=== PATIENT | female | born 1935 | race African-American/Black ===

== ENCOUNTER 2017-08-02 10:31 | Outpatient (CLI) | payer MEDICARE, MEDICAID ==
--- NOTE | 2017-08-02 12:43 | RAD ---
FOUR VIEWS OF THE RIGHT KNEE: INDICATION: Right knee pain. COMPARISON: None. FINDINGS: There is moderate osteoarthrosis of the right knee. There is mild joint capsular distention. No acu te fracture or subluxation is evident. IMPRESSION: No acute fracture or subluxation. Mild osteoarthrosis of the right knee. POS: [facility]
== END 2017-08-02 10:32 | disposition home or self-care (01) ==
LOC: RAD-FRANK 10:31
PROVIDERS: ATTEND Internal Medicine
DX: M25.561 Pain in right knee (principal); M17.11 Unilateral primary osteoarthritis, right knee

== ENCOUNTER 2017-08-31 14:13 | Emergency (ER) | payer MEDICARE, MEDICAID ==
--- NOTE | 2017-08-31 15:36 | RAD ---
RIGHT KNEE FOUR VIEW 08/31/17 HISTORY: Knee pain. COMPARISON: Radiograph 08/02/17. FINDINGS: there is narrowing of all three compartments. Moderate sized joint effusion. Moderate sized tricompartment osteophytes are present. Subchondral cyst formation is present of the l ateral tibial plateau. No displaced fracture is appreciated. IMPRESSION: Mild to moderate osteoarthritic disease with moderate sized joint effusion. May be sequela of underly ing degenerative changes. MRI may be helpful. POS: [facility]
--- NOTE | 2017-08-31 16:24 | ULT ---
VENOUS DOPPLER ULTRASOUND OF THE RIGHT LOWER EXTREMITY 08/31/17 HISTORY: Right lower extremity pain, right knee pain. TECHNIQUE: Chappell scale ultrasound with color flow and spectral doppler imaging of the deep venous system of the r ight lower extremity is performed. There is good flow, compression, and augmentation noted in the deep veins of the right lower extremit y including the common femoral, femoral, deep femoral, popliteal, posterior tibial and greater saphen ous veins. A small hypoechoic area/fluid collection is seen in the popliteal fossa likely a Yusuf's c yst. IMPRESSION: No evidence of DVT in the right lower extremity. POS: [facility]
== END 2017-08-31 16:45 | disposition home or self-care (01) ==
LOC: ERS 14:13
DX: M71.21 Synovial cyst of popliteal space [Baker], right knee (principal); M17.11 Unilateral primary osteoarthritis, right knee; E11.9 Type 2 diabetes mellitus without complications; I10 Essential (primary) hypertension

== ENCOUNTER 2017-09-20 08:14 | Outpatient (CLI) | payer MEDICARE, MEDICAID | END 2017-09-20 08:15 | disposition home or self-care (01) | LOC: BICMRI 08:14 | PROVIDERS: ATTEND Internal Medicine | DX: M71.21 Synovial cyst of popliteal space [Baker], right knee (principal); M17.11 Unilateral primary osteoarthritis, right knee; S83.281A Other tear of lateral meniscus, current injury, right knee, initial encounter ==

== ENCOUNTER 2017-10-22 08:16 | Emergency (ER) | payer MEDICARE, MEDICAID ==
--- NOTE | 2017-10-22 08:47 | RAD ---
PORTABLE CHEST 1 VIEW: DATE: 10/22/17. TIME: 8:45 a.m. HISTORY: Cough. FINDINGS: Comparison is made with the exam of 10/25/09. The heart size is normal. The aorta is tortuous. The lungs are expanded without lobar consolidation , pneumothoraces, or pleural effusions. IMPRESSION: No acute process. POS: [facility]
[2017-10-22 08:54] LABS: #Basophils 0.1 thou/uL (0.0-0.2); #Lymphocytes 1.3 thou/uL (1.20-3.40); #Monocytes 0.9 thou/uL (0.11-0.59); #Neutrophils 7.6 thou/uL (1.40-6.50); %Basophils 0.5 % (0.0-1.0); %Eosinophils 0.2 % (0.0-10.0); %Lymphocytes 12.7 % (21.0-51.0); %Monocytes 9.2 % (0.0-10.0); %Neutrophils 77.4 % (42.0-75.0); Hemoglobin 13.8 g/dL (12.0-16.0); Mean Corpuscular HGB CONC 31.4 g/dL (32.0-36.0); Mean Corpuscular Hemoglobin 27.4 pg (27.0-31.0); Mean Corpuscular Volume 87.1 fl (81.0-99.0); RBC Distribution Width 13.5 % (11.5-14.5); Red Blood Cell (RBC) Count 5.05 mill/uL (4.20-5.40); White Blood Cell (WBC) Count 9.8 thou/uL (4.8-10.8)
[2017-10-22] MEDS ORDERED: Acetaminophen 500 MG TAB ONE (08:55)
[2017-10-22 09:03] LABS: Bilirubin Negative (Negative); Blood, Urine Trace (Negative); Clarity CLEAR (Clear); Glucose, Urine (Dipstick) Negative (Negative); Leukocyte Negative (Negative); Nitrite Negative (Negative); Protein, Urine (Dipstick) 30 mg/dL (Neg-Trace); Specific Gravity, Urine 1.021 (1.002-1.036)
[2017-10-22 09:05] LABS: Bacteria/HPF None Seen HPF (None Seen); Hyaline Casts/LPF 0-3 HYALINE CAST LPF (0-3 Hyaline); Pathc Cast-AUWi Flag 0.13 (0-2.49); Squamous Epithelial 0-3 HPF (0-3); WBC/HPF 0-3 HPF (0-3)
[2017-10-22 09:13] LABS: ALT (SGPT) 7 U/L (8-55); AST (SGOT) 13 U/L (5-34); Albumin 4.1 g/dL (3.4-4.8); Alkaline Phosphatase 91 U/L (40-150); Anion Gap 14 mmol/L (10-20); BUN (Urea Nitrogen) 6 mg/dL (9.8-20.1); Calc. Creatinine Clearance 0 mL/min (70-130); Calcium 10.5 mg/dL (7.8-10.44); Carbon Dioxide 23 mmol/L (23-31); Chloride 103 mmol/L (98-107); Estimated GFR-MDRD Greater than 90; Globulin 3.8 g/dL (2.4-3.5); Glucose 144 mg/dL (83-110); Mean Platelet Volume 8.9 fL (7.4-10.4); Platelet Count 90 thou/uL (130-400); Protein, Total 7.9 g/dL (6.0-8.3); Sodium 136 mmol/L (136-145)
[2017-10-22] MEDS ORDERED: Ibuprofen 800 MG TAB ONE (10:00)
== END 2017-10-22 13:10 | disposition home or self-care (01) ==
LOC: ERS 08:16
DX: R50.9 Fever, unspecified (principal); E78.5 Hyperlipidemia, unspecified; E11.9 Type 2 diabetes mellitus without complications; I10 Essential (primary) hypertension; M06.9 Rheumatoid arthritis, unspecified; Z79.84 Long term (current) use of oral hypoglycemic drugs; Z79.899 Other long term (current) drug therapy
CPT/HCPCS: 36415; 71045; 80053; 81003; 81015; 83605; 85025; 96360

== ENCOUNTER 2017-10-25 08:28 | Inpatient (IN) | payer MEDICARE, MEDICAID ==
[2017-10-25 09:59] LABS: #Lymphocytes 2.1 thou/uL (1.20-3.40); #Monocytes 1.3 thou/uL (0.11-0.59); #Neutrophils 5.8 thou/uL (1.40-6.50); %Basophils 0.4 % (0.0-1.0); %Eosinophils 0.3 % (0.0-10.0); %Lymphocytes 22.6 % (21.0-51.0); %Monocytes 14.1 % (0.0-10.0); %Neutrophils 62.6 % (42.0-75.0); Hemoglobin 12.7 g/dL (12.0-16.0); Mean Corpuscular HGB CONC 31.8 g/dL (32.0-36.0); Mean Corpuscular Hemoglobin 27.9 pg (27.0-31.0); Mean Corpuscular Volume 87.8 fl (81.0-99.0); Mean Platelet Volume 7.9 fL (7.4-10.4); Platelet Count 128 thou/uL (130-400); RBC Distribution Width 13.4 % (11.5-14.5); Red Blood Cell (RBC) Count 4.57 mill/uL (4.20-5.40); White Blood Cell (WBC) Count 9.2 thou/uL (4.8-10.8)
--- NOTE | 2017-10-25 10:13 | RAD ---
CHEST 2 VIEWS: HISTORY: Emergency exam. Pneumonia. COMPARISON: Chest radiograph 10/22/17. FINDINGS: There is a patchy left lower lobe airspace opacity. There is also an enlarging asymmetric density wi thin the right upper lobe. No pneumothorax. Cardiac silhouette and mediastinal contours are similar. Mild blunting of right lateral costophrenic sulcus. IMPRESSION: 1. Faint left lower lobe airspace opacity concerning for pneumonia. 2. Mild increased opacification of right upper lobe could be an area of scarring, bronchiectasis, or also consolidation. Followup recommended. POS: [facility]
[2017-10-25 10:19] LABS: Anion Gap 14 mmol/L (10-20); BUN (Urea Nitrogen) 7 mg/dL (9.8-20.1); Calc. Creatinine Clearance 0 mL/min (70-130); Calcium 10.8 mg/dL (7.8-10.44); Carbon Dioxide 25 mmol/L (23-31); Chloride 104 mmol/L (98-107); Estimated GFR-MDRD Greater than 90; Glucose 92 mg/dL (83-110); Potassium 3.7 mmol/L (3.5-5.1); Sodium 139 mmol/L (136-145)
[2017-10-25 10:47] LABS: Bilirubin Negative (Negative); Blood, Urine Negative (Negative); Clarity CLEAR (Clear); Glucose, Urine (Dipstick) Negative (Negative); Leukocyte Negative (Negative); Nitrite Negative (Negative); Protein, Urine (Dipstick) Negative (Neg-Trace); Specific Gravity, Urine 1.016 (1.002-1.036); pH, Urine 7.5 (5.0-9.0)
[2017-10-25] MEDS ORDERED: Azithromycin 500 MG VIAL ONE (11:17)
[2017-10-25] MEDS ORDERED: Ondansetron HCl/PF 4 MG/2 ML Vial IVP PRN (13:32)
[2017-10-25] MEDS ORDERED: Ondansetron ODT 4 MG TAB PO PRN (13:32)
[2017-10-25] MEDS ORDERED: Acetaminophen 325 MG TAB PO PRN (13:33)
[2017-10-25] MEDS ORDERED: Dextrose 5% in Water 1,000 ML IV PRN (14:45)
[2017-10-25] MEDS ORDERED: Dextrose 50% Abboject 50 ML SYRINGE IVP PRN (14:45)
[2017-10-25] MEDS ORDERED: Guaifenesin DM 100-10/5 ML UDCUP PO PRN (14:45)
[2017-10-25] MEDS ORDERED: Insulin Regular 300 UNITS/3 ML VIAL SC PRN ×2 (14:45)
[2017-10-25] MEDS: cloNIDine 0.1 MG TAB PO PRN (15:15)
[2017-10-25] MEDS: Sodium Chloride 0.9% 1,000 ML IV SCH (15:16)
[2017-10-25 16:01] VITALS: BMI 28.8
[2017-10-25] MEDS: metFORMIN 500 MG TAB PO SCH (18:12)
[2017-10-25] MEDS: Lisinopril 20 MG TAB PO SCH (21:59)
[2017-10-25] MEDS: Atorvastatin Calcium 20 MG TAB PO SCH (22:00)
[2017-10-25] MEDS: Carvedilol 25 MG TAB PO SCH (22:00)
--- NOTE | 2017-10-26 06:13 | HP ---
DATE OF ADMISSION: 10/25/2017 REASON FOR ADMISSION AND CHIEF COMPLAINT: Cough and fever. HISTORY OF PRESENT ILLNESS: Ms. Bishop is an 82-year-old -[place] female with past medical history of hypertension, diabetes mellitus, came because of cough, congestion, and fever. The patient has been having these symptoms for few days and she says she was diagnosed with pneumonia by another doctor and given Levaquin, but her symptoms have not improved. She still has fever of 102, cough productive with yellow sputum and some congestion, but no chest pain, no shortness of breath. The patient has been taking antipyretic to control the fever. She decided to come to the hospital because of not improving. In the ER, the patient was evaluated and found to have possible early pneumonia in the left lower lobe according to Radiology. She received Rocephin, azithromycin and DuoNebs in the ER and started on IV fluids and admitted for further evaluation and management. PAST MEDICAL HISTORY: 1. Hypertension. 2. Diabetes mellitus. 3. Hyperlipidemia. 4. History of CVA. 5. History of asthmatic bronchitis. PAST SURGICAL HISTORY: 1. Status post hysterectomy. 2. Status post partial colon resection. CURRENT MEDICATIONS: The patient is on lisinopril 20 mg b.i.d., metformin 1000 once a day, simvastatin 40 mg daily, Coreg 25 b.i.d., and vitamin D daily. ALLERGIES: No known drug allergies. FAMILY HISTORY: Nothing of interest. SOCIAL HISTORY: The patient lives with family. No history of smoking. No history of alcohol intake. REVIEW OF SYSTEMS: Cardiovascular: Has no chest pain, no shortness of breath. Respiratory: Has cough and fever. Gastrointestinal: No nausea or vomiting. No abdominal pain. Genitourinary: No dysuria or hematuria. Central nervous system: No headache, no dizziness. PHYSICAL EXAMINATION: GENERAL: The patient is alert, awake, oriented x3. VITAL SIGNS: Temperature of 102, but now 99, pulse 94, respirations 25, blood pressure 140/70. HEENT: Head is normocephalic, atraumatic. Pupils are equal and reactive. Nasopharynx is congested. NECK: Supple. No JVD. LUNGS: Breath sounds diminished bilaterally. Percussion dull bilaterally. No crackles or rhonchi. HEART: S1, S2 regular. ABDOMEN: Soft, no distention, no tenderness. Normal bowel sounds. RECTAL: Deferred. CENTRAL NERVOUS SYSTEM: No focal deficit. LABORATORY DATA AND X-RAY FINDINGS: CBC shows WBC 9.5, hemoglobin 12, hematocrit 40, platelets 128. Metabolic panel: Sodium 139, potassium 3.7, chloride 104, CO2 of 25, urea nitrogen 7, creatinine 0.6, glucose 136. Urinalysis negative. Chest x-ray, reported as increased opacification, faint left lower lobe airspace opacity concerning for pneumonia. EKG shows normal sinus rhythm, no acute ST-T wave changes seen. ASSESSMENT: 1. Pneumonia, left lower lobe. 2. Fever and cough. 3. Hypertension. 4. Diabetes mellitus. 5. Hyperlipidemia. 6. History of cerebrovascular accident. PLAN: 1. Vital signs q.4 hours. 2. Activity: As tolerated. 3. Allergies: No known drug allergies. 4. IV fluids: Normal saline at 70 mL per hour. 5. Rocephin 1 gram IV piggyback daily. 6. azithromycin 250 mg IV piggyback daily. 7. Accu-Cheks a.c. and at bedtime, sliding scale mild with regular insulin. 8. Robitussin 1 teaspoon t.i.d. p.r.n. 7. Continue home medications. 9. DuoNebs 1 unit q.i.d. MTDD
[2017-10-26] MEDS: Lisinopril 20 MG TAB PO SCH ×2 (08:07→21:57)
[2017-10-26] MEDS: Sodium Chloride 0.9% 1,000 ML IV SCH ×2 (08:08→21:57)
[2017-10-26] MEDS: metFORMIN 500 MG TAB PO SCH ×2 (08:08→16:44)
[2017-10-26] MEDS: Carvedilol 25 MG TAB PO SCH ×2 (08:08→21:57)
[2017-10-26] MEDS: Acetaminophen 325 MG TAB PO PRN (10:19)
[2017-10-26] MEDS: cefTRIAXone\\ROCEPHIN 1 GM, Syringe 0.4 ML in Sterile Water 9.6 ML SLOW IVP SCH (10:23)
[2017-10-26] MEDS: Azithromycin 250 MG, Admixture Fee 1 EACH in Sodium Chloride 0.9% 250 ML 250 ML IVPB SCH (11:45)
[2017-10-26] MEDS: Atorvastatin Calcium 20 MG TAB PO SCH (21:57)
[2017-10-27] MEDS: Lisinopril 20 MG TAB PO SCH ×2 (08:44→20:38)
[2017-10-27] MEDS: Carvedilol 25 MG TAB PO SCH ×2 (08:44→20:39)
[2017-10-27] MEDS: metFORMIN 500 MG TAB PO SCH ×2 (08:44→16:09)
[2017-10-27] MEDS: Sodium Chloride 0.9% 1,000 ML IV SCH ×3 (11:47→23:45)
[2017-10-27] MEDS: Azithromycin 250 MG, Admixture Fee 1 EACH in Sodium Chloride 0.9% 250 ML 250 ML IVPB SCH (11:48)
[2017-10-27] MEDS: Acetaminophen 325 MG TAB PO PRN (11:48)
[2017-10-27] MEDS: cefTRIAXone\\ROCEPHIN 1 GM, Syringe 0.4 ML in Sterile Water 9.6 ML SLOW IVP SCH (11:57)
[2017-10-27] MEDS: Atorvastatin Calcium 20 MG TAB PO SCH (20:39)
[2017-10-28] MEDS: cloNIDine 0.1 MG TAB PO PRN (00:05)
[2017-10-28 05:01] LABS: #Eosinphils 0.1 thou/uL (0.0-0.7); #Lymphocytes 2.1 thou/uL (1.20-3.40); #Monocytes 0.6 thou/uL (0.11-0.59); #Neutrophils 3.6 thou/uL (1.40-6.50); %Basophils 0.1 % (0.0-1.0); %Eosinophils 1.6 % (0.0-10.0); %Lymphocytes 32.1 % (21.0-51.0); %Monocytes 9.5 % (0.0-10.0); %Neutrophils 56.7 % (42.0-75.0); Hemoglobin 12.3 g/dL (12.0-16.0); Mean Corpuscular HGB CONC 32.3 g/dL (32.0-36.0); Mean Corpuscular Hemoglobin 27.8 pg (27.0-31.0); Platelet Count 136 thou/uL (130-400); RBC Distribution Width 13.5 % (11.5-14.5); Red Blood Cell (RBC) Count 4.42 mill/uL (4.20-5.40); White Blood Cell (WBC) Count 6.4 thou/uL (4.8-10.8)
[2017-10-28 05:12] LABS: Anion Gap 11 mmol/L (10-20); BUN (Urea Nitrogen) 5 mg/dL (9.8-20.1); Calc. Creatinine Clearance 94 mL/min (70-130); Calcium 9.7 mg/dL (7.8-10.44); Carbon Dioxide 25 mmol/L (23-31); Chloride 107 mmol/L (98-107); Estimated GFR-MDRD Greater than 90; Glucose 104 mg/dL (83-110); Potassium 3.6 mmol/L (3.5-5.1); Sodium 139 mmol/L (136-145)
[2017-10-28] MEDS: Carvedilol 25 MG TAB PO SCH ×2 (08:30→20:22)
[2017-10-28] MEDS: metFORMIN 500 MG TAB PO SCH ×2 (08:30→16:38)
[2017-10-28] MEDS: Lisinopril 20 MG TAB PO SCH ×2 (08:30→20:22)
[2017-10-28] MEDS: Azithromycin 250 MG, Admixture Fee 1 EACH in Sodium Chloride 0.9% 250 ML 250 ML IVPB SCH (11:34)
[2017-10-28] MEDS: cefTRIAXone\\ROCEPHIN 1 GM, Syringe 0.4 ML in Sterile Water 9.6 ML SLOW IVP SCH (11:34)
[2017-10-28] MEDS: Atorvastatin Calcium 20 MG TAB PO SCH (20:22)
[2017-10-29] MEDS: metFORMIN 500 MG TAB PO SCH (08:35)
[2017-10-29] MEDS: Carvedilol 25 MG TAB PO SCH (08:36)
[2017-10-29] MEDS: Lisinopril 20 MG TAB PO SCH (08:36)
[2017-10-29 08:48] VITALS: TEMP 98.3
[2017-10-29 09:50] VITALS: BP 155/95
[2017-10-29] MEDS: cefTRIAXone\\ROCEPHIN 1 GM, Syringe 0.4 ML in Sterile Water 9.6 ML SLOW IVP SCH (11:23)
[2017-10-29] MEDS: Azithromycin 250 MG, Admixture Fee 1 EACH in Sodium Chloride 0.9% 250 ML 250 ML IVPB SCH (11:23)
--- NOTE | 2017-10-30 15:33 | EKG ---
Test Reason : Blood Pressure : / mmHG Vent. Rate : 100 BPM Atrial Rate : 100 BPM P-R Int : 148 ms QRS Dur : 064 ms QT Int : 332 ms P-R-T Axes : 032 010 021 degrees QTc Int : 428 ms Normal sinus rhythm Nonspecific ST abnormality Abnormal ECG Confirmed by KALE MILLER ([id number]), associate entertainment editor ROSELYN DALLAS ([id number]) on 10/30/2017 3:32:54 PM Referred By: Confirmed By:KALE MILLER
== END 2017-10-29 12:43 | disposition home or self-care (01) | DRG 195 ==
LOC: ERS 08:28 → 2SW 12:00 → OBSVTOIN 14:41 → T4-A 16:57
PROVIDERS: ADMIT Internal Medicine; ATTEND Internal Medicine
DX: J18.9 Pneumonia, unspecified organism (principal); E11.9 Type 2 diabetes mellitus without complications; M06.9 Rheumatoid arthritis, unspecified; E78.5 Hyperlipidemia, unspecified; I10 Essential (primary) hypertension; Z79.84 Long term (current) use of oral hypoglycemic drugs; Z86.73 Personal history of transient ischemic attack (TIA), and cerebral infarction without residual deficits; R50.9 Fever, unspecified; Z79.899 Other long term (current) drug therapy
CPT/HCPCS: 36415; 36416; 51701; 71045; 71046; 80048; 80053; 81003; 81015; 83605; 85025; 87086; 93005; 94640; 94760; 96360; 96365; 96375; A4216; A4353; J0456; J0696; J7050; J7620

== ENCOUNTER 2017-12-31 15:13 | Emergency (ER) | payer MEDICARE, MEDICAID ==
[2017-12-31 15:58] LABS: #Basophils 0.1 thou/uL (0.0-0.2); #Eosinphils 0.8 thou/uL (0.0-0.7); #Lymphocytes 2.6 thou/uL (1.20-3.40); #Monocytes 0.8 thou/uL (0.11-0.59); #Neutrophils 4.5 thou/uL (1.40-6.50); %Basophils 0.7 % (0.0-1.0); %Eosinophils 9.7 % (0.0-10.0); %Lymphocytes 29.4 % (21.0-51.0); %Monocytes 8.7 % (0.0-10.0); %Neutrophils 51.4 % (42.0-75.0); Hemoglobin 13.4 g/dL (12.0-16.0); Mean Corpuscular HGB CONC 33.2 g/dL (32.0-36.0); Mean Corpuscular Hemoglobin 28.9 pg (27.0-31.0); Mean Corpuscular Volume 87.1 fl (81.0-99.0); Mean Platelet Volume 8.2 fL (7.4-10.4); Platelet Count 117 thou/uL (130-400); RBC Distribution Width 14.8 % (11.5-14.5); Red Blood Cell (RBC) Count 4.63 mill/uL (4.20-5.40); White Blood Cell (WBC) Count 8.7 thou/uL (4.8-10.8)
[2017-12-31] MEDS ORDERED: methylPREDNISolone Sod Succ/PF 125 MG/2 ML VIAL ONE ×2 (16:17→16:20)
[2017-12-31 16:20] LABS: ALT (SGPT) 8 U/L (8-55); AST (SGOT) 12 U/L (5-34); Albumin 4.2 g/dL (3.4-4.8); Alkaline Phosphatase 98 U/L (40-150); Anion Gap 10 mmol/L (10-20); BUN (Urea Nitrogen) 11 mg/dL (9.8-20.1); Bilirubin, Total 0.7 mg/dL (0.2-1.2); Calc. Creatinine Clearance 0 mL/min (70-130); Calcium 10.2 mg/dL (7.8-10.44); Carbon Dioxide 26 mmol/L (23-31); Chloride 109 mmol/L (98-107); Estimated GFR-MDRD Greater than 90; Globulin 3.1 g/dL (2.4-3.5); Glucose 125 mg/dL (83-110); Potassium 3.5 mmol/L (3.5-5.1); Protein, Total 7.3 g/dL (6.0-8.3); Sodium 141 mmol/L (136-145)
--- NOTE | 2017-12-31 16:44 | RAD ---
PORTABLE CHEST: 12/31/17 HISTORY: Dyspnea. COMPARISON: 10/22/17. Lungs show no evidence of focal infiltrate or effusion. Heart size within normal range. Vascular phuc ings upper normal. Interstitium is upper normal. IMPRESSION: No acute finding or significant change from the 10/22/17 exam. POS: [facility]
[2017-12-31 17:04] LABS: CKMB 0.9 ng/mL (0-6.6); Troponin I Less than 0.010 ng/mL (< 0.028)
== END 2017-12-31 17:25 | disposition home or self-care (01) ==
LOC: ERS 15:13
DX: J45.901 Unspecified asthma with (acute) exacerbation (principal); E78.5 Hyperlipidemia, unspecified; E11.9 Type 2 diabetes mellitus without complications; I10 Essential (primary) hypertension; M06.9 Rheumatoid arthritis, unspecified; Z79.899 Other long term (current) drug therapy; Z79.84 Long term (current) use of oral hypoglycemic drugs
CPT/HCPCS: 71045; 80053; 82553; 83880; 84484; 85025; 93005; 94640; 96374; J2930

== ENCOUNTER 2018-03-02 03:41 | Emergency (ER) | payer MEDICARE, MEDICAID ==
[2018-03-02] MEDS ORDERED: Albuterol Sulfate 2.5 mg/3 ml Neb ONE (04:04)
[2018-03-02] MEDS ORDERED: Magnesium Sulfate 2 GM in Sodium Chloride 0.9% 100 ML IVPB SCH (04:30)
[2018-03-02 04:43] LABS: #Eosinphils 0.4 thou/uL (0.0-0.7); #Lymphocytes 2.1 thou/uL (1.20-3.40); #Monocytes 0.4 thou/uL (0.11-0.59); #Neutrophils 4.1 thou/uL (1.40-6.50); %Basophils 0.6 % (0.0-1.0); %Eosinophils 6.1 % (0.0-10.0); %Lymphocytes 30.2 % (21.0-51.0); %Monocytes 5.6 % (0.0-10.0); %Neutrophils 57.5 % (42.0-75.0); Mean Corpuscular HGB CONC 32.1 g/dL (32.0-36.0); Mean Corpuscular Hemoglobin 28.3 pg (27.0-31.0); Mean Platelet Volume 8.3 fL (7.4-10.4); Platelet Count 111 thou/uL (130-400); RBC Distribution Width 13.8 % (11.5-14.5); Red Blood Cell (RBC) Count 4.95 mill/uL (4.20-5.40); White Blood Cell (WBC) Count 7.1 thou/uL (4.8-10.8)
[2018-03-02 05:10] LABS: ALT (SGPT) 9 U/L (8-55); AST (SGOT) 12 U/L (5-34); Albumin 4.2 g/dL (3.4-4.8); Alkaline Phosphatase 101 U/L (40-150); Anion Gap 14 mmol/L (10-20); BUN (Urea Nitrogen) 10 mg/dL (9.8-20.1); Bilirubin, Total 0.5 mg/dL (0.2-1.2); Calc. Creatinine Clearance 0 mL/min (70-130); Calcium 10.3 mg/dL (7.8-10.44); Carbon Dioxide 23 mmol/L (23-31); Chloride 106 mmol/L (98-107); Estimated GFR-MDRD 87; Glucose 145 mg/dL (83-110); Protein, Total 7.2 g/dL (6.0-8.3); Sodium 139 mmol/L (136-145)
[2018-03-02] MEDS ORDERED: cefTRIAXone\\ROCEPHIN 2 GM VIAL ONE (05:37)
[2018-03-02] MEDS ORDERED: Sodium Chloride 0.9% 100 ML ONE (05:37)
--- NOTE | 2018-03-02 08:58 | RAD ---
PORTABLE CHEST 1 VIEW: Date: 03/02/18 Time: 0317 hours HISTORY: Dyspnea. FINDINGS: Comparison made with exam of 12/31/17. The heart size is normal. The aorta is tortuous. The lungs are well expanded without focal areas of c onsolidation, pneumothorax, or pleural effusions. IMPRESSION: No acute process. POS: [facility]
--- NOTE | 2018-03-05 12:06 | EKG ---
Test Reason : SOB Blood Pressure : / mmHG Vent. Rate : 093 BPM Atrial Rate : 093 BPM P-R Int : 150 ms QRS Dur : 066 ms QT Int : 364 ms P-R-T Axes : 033 011 069 degrees QTc Int : 452 ms Normal sinus rhythm Possible Left atrial enlargement Borderline ECG Confirmed by LEONIDES COEP, ASHLEIGH Howe ([id number]), assignment editor ROSELYN DALLAS ([id number]) on 03/05/2018 12:05:56 PM Referred By: Confirmed By:ASHLEIGH COYLE MD
== END 2018-03-02 06:08 | disposition home or self-care (01) ==
LOC: ERS 03:41
DX: J45.901 Unspecified asthma with (acute) exacerbation (principal); E78.5 Hyperlipidemia, unspecified; E11.9 Type 2 diabetes mellitus without complications; M06.9 Rheumatoid arthritis, unspecified; I10 Essential (primary) hypertension; Z79.84 Long term (current) use of oral hypoglycemic drugs; Z87.01 Personal history of pneumonia (recurrent); Z79.891 Long term (current) use of opiate analgesic
CPT/HCPCS: 36415; 71045; 80053; 83605; 85025; 87040; 93005; 94640; 94760; 96365; 96367; J0696; J3475; J7050; J7611

== ENCOUNTER 2019-06-24 12:16 | Emergency (ER) | payer MEDICARE, MEDICAID ==
--- NOTE | 2019-06-24 13:37 | RAD ---
RIGHT KNEE 4 VIEWS: Date: 06/24/19 HISTORY: Right knee pain. FINDINGS: Comparison made with exam of 08/31/17. Degenerative changes are again seen. No fracture, dislocation, or bony destruction is identified. IMPRESSION: Right knee osteoarthritis. POS: [facility]
== END 2019-06-24 13:57 | disposition home or self-care (01) ==
LOC: ERS 12:16
DX: M25.561 Pain in right knee (principal); E78.5 Hyperlipidemia, unspecified; E78.00 Pure hypercholesterolemia, unspecified; E11.9 Type 2 diabetes mellitus without complications; M06.9 Rheumatoid arthritis, unspecified; Z79.899 Other long term (current) drug therapy; Z79.84 Long term (current) use of oral hypoglycemic drugs

== ENCOUNTER 2021-03-04 11:31 | Outpatient (CLI) | payer MEDICARE, MEDICAID | END 2021-03-04 11:32 | disposition home or self-care (01) | LOC: RAD-FRANK 11:31 | PROVIDERS: ATTEND Nurse Practitioner Family | DX: R05 Cough (principal) | CPT/HCPCS: 71046 ==

== ENCOUNTER 2023-07-23 09:18 | Emergency (ER) | payer MEDICARE, MEDICAID ==
[2023-07-23 09:49] LABS: #Eosinphils 0.1 thou/uL (0.0-0.7); #Monocytes 0.5 thou/uL (0.11-0.59); #Neutrophils 3.7 thou/uL (1.40-6.50); %Basophils 0.3 % (0.0-1.0); %Lymphocytes 30.7 % (21.0-51.0); %Monocytes 7.5 % (0.0-10.0); %Neutrophils 59.8 % (42.0-75.0); Hematocrit 36.3 % (36.0-47.0); Hemoglobin 11.6 g/dL (12.0-16.0); Mean Corpuscular Hemoglobin 27.5 pg (27.0-31.0); Mean Platelet Volume 9.7 fL (7.4-10.4); Platelet Count 130 10x3/uL (130-400); RBC Distribution Width 15.2 % (11.5-14.5); Red Blood Cell (RBC) Count 4.22 mill/uL (4.20-5.40); White Blood Cell (WBC) Count 6.1 10x3/uL (4.8-10.8)
[2023-07-23 10:42] LABS: Bilirubin Negative (Negative); Blood, Urine Negative (Negative); CAUTI Indications for Culture Dysuria,urgency,freq; Clarity Turbid (Clear); Glucose, Urine (Dipstick) Normal (Negative); Ketone, Urine Negative (Negative); Leukocyte Negative Leu/uL (Negative); Nitrite Negative (Negative); Protein, Urine (Dipstick) Negative (Neg-Trace); RBC/HPF 0-3 HPF (0-3); Specific Gravity, Urine 1.024 (1.002-1.036); Urobilinogen Normal mg/dL (Less than 2); WBC/HPF 0-3 HPF (0-3); pH, Urine 5.5 (5.0-9.0)
[2023-07-23 10:45] LABS: ALT (SGPT) 11 U/L (8-55); AST (SGOT) 12 U/L (5-34); Albumin 3.9 g/dL (3.4-4.8); Alkaline Phosphatase 79 U/L (40-110); Anion Gap 15 mmol/L (10-20); BUN (Urea Nitrogen) 19 mg/dL (9.8-20.1); Bilirubin, Total 0.5 mg/dL (0.2-1.2); Calc. Creatinine Clearance 0 mL/min (70-130); Calcium 10.7 mg/dL (7.8-10.44); Carbon Dioxide 25 mmol/L (23-31); Chloride 103 mmol/L (98-107); Estimated GFR 56; Globulin 3.5 g/dL (2.4-3.5); Glucose 138 mg/dL (83-110); Potassium 3.5 mmol/L (3.5-5.1); Protein, Total 7.4 g/dL (5.8-8.1); Sodium 139 mmol/L (136-145)
[2023-07-23 10:45] LABS: Bacteria/HPF 1+ HPF (None Seen)
[2023-07-23 10:46] LABS: Urine Culture Reflex No No
[2023-07-23 10:49] LABS: Troponin I Less than 0.010 ng/mL (< 0.028)
[2023-07-23 11:13] LABS: Lipase 32 U/L (8-78); Magnesium 1.7 mg/dL (1.6-2.6)
[2023-07-23] MEDS ORDERED: Ondansetron ODT 4 MG TAB ONE (11:29)
== END 2023-07-23 11:31 | disposition home or self-care (01) ==
LOC: ERS 09:18
DX: R05.9 Cough, unspecified (principal); I10 Essential (primary) hypertension; E11.9 Type 2 diabetes mellitus without complications; E78.00 Pure hypercholesterolemia, unspecified; Z79.84 Long term (current) use of oral hypoglycemic drugs; Z79.899 Other long term (current) drug therapy
CPT/HCPCS: 36415; 71045; 80053; 81001; 83690; 83735; 83880; 84484; 85025; 93005; Q0162